=== PATIENT | male | born 1955 | race Caucasian/White ===

== ENCOUNTER 2022-05-22 10:36 | Emergency (ER) | payer MEDICARE, BC ==
[2022-05-22 11:38] LABS: ESTIMATED GFR 60 mL/min (>60)
== END 2022-05-22 13:20 | disposition home or self-care (01) ==
LOC: JD.ED 10:36
DX: I15.8 Other secondary hypertension (principal); Z79.899 Other long term (current) drug therapy
CPT/HCPCS: 36415; 70450; 70450-26; 80053; 82947; 83735; 83880; 84443; 85025; 85610; 85652; 85730; 86140; 93005; 99285

== ENCOUNTER 2022-07-27 07:05 | Day surgery (SDC) | payer MEDICARE, BC ==
[~2022-07-27 07:05] MED LIST: Lactated Ringers 1,000 ML IV SCH; Lidocaine 1%/Sod Bicarbonate in NS 8.4% 1 ML Syringe IDERM PRN; Morphine 8 MG, EPINEPHrine 0.3 MG, Cefuroxime 750 MG, Ketorolac 30 MG, Sodium Chloride ... PRN; Sodium Chloride 0.9% 10 ML Syringe FLUSH PRN; Sodium Chloride 0.9% 10 ML Syringe FLUSH SCH
[2022-07-27] MEDS ORDERED: Midazolam 1 MG/ML 2 ML SDV ONE (07:12)
[2022-07-27] MEDS ORDERED: Propofol 200 MG/20 ML SDV ONE (07:12)
[2022-07-27] MEDS ORDERED: fentaNYL 100 MCG/2 ML SDV ONE (07:12)
[2022-07-27] MEDS ORDERED: Lidocaine 1% 2 ML ONE (07:12)
[2022-07-27] MEDS ORDERED: Acetaminophen 325 MG Tab PO ONE (07:15)
[2022-07-27] MEDS ORDERED: oxyCODONE ER 10 MG TAB.ER PO ONE (07:15)
[2022-07-27] MEDS ORDERED: Pregabalin 25 MG Cap PO ONE (07:15)
[2022-07-27] MEDS ORDERED: Tranexamic Acid 1,000 MG/10 ML Vial ONE (08:07)
[2022-07-27] MEDS ORDERED: Vancomycin 1 GM SDV ONE (08:07)
[2022-07-27] MEDS ORDERED: HYDROmorphone 0.5 MG/0.5 ML Syringe IVPUSH PRN (08:09)
[2022-07-27] MEDS ORDERED: Ondansetron 4 MG/2 ML SDV IVPUSH PRN (08:09)
[2022-07-27] MEDS ORDERED: fentaNYL 100 MCG/2 ML SDV IVPUSH PRN (08:09)
[2022-07-27] MEDS ORDERED: ceFAZolin 2 GM Vial ONE (09:00)
[2022-07-27] MEDS ORDERED: ePHEDrine 50 MG/ML SDV ONE (09:00)
[2022-07-27] MEDS ORDERED: Phenylephrine HCl In 0.9% NaCl 1 MG/10 ML Vial ONE (09:00)
[2022-07-27] MEDS ORDERED: Ketorolac 30 MG/ML SDV ONE (09:53)
[2022-07-27] MEDS ORDERED: Acetaminophen/HYDROcodone 325-5 MG Tab PO ONE (12:42)
== END 2022-07-27 14:10 | disposition home or self-care (01) ==
LOC: JD.SDS 07:05
PROVIDERS: ATTEND Orthopaedic Surgery
DX: M16.0 Bilateral primary osteoarthritis of hip (principal); I10 Essential (primary) hypertension; E78.5 Hyperlipidemia, unspecified; Z79.899 Other long term (current) drug therapy; Z87.891 Personal history of nicotine dependence
CPT/HCPCS: 0055T; 27130; 36415; 73501; 85730; 97110; 97116; 97161; A9270; C1713; C1776; J0171; J0690; J0697; J1885; J2250; J2270; J2704; J3010; J3370; J7120; 01214; J3490